=== PATIENT | male | born 1965 | race Caucasian/White ===

== ENCOUNTER 2017-06-18 05:28 | Day surgery (SDC) | payer MEDICAID ==
[~2017-06-18] VITALS: Ht 170.2 cm; Wt 95.3 kg
[2017-06-18] MEDS ORDERED: MORPHINE SULFATE/PF 1MG/ML 10ML AMP ONE (06:47)
[2017-06-18] MEDS ORDERED: BUPIVACAINE HCL/EPINEPHRINE/PF 0.5%/0.0005 10ML ONE (06:47)
[2017-06-18] MEDS ORDERED: EPINEPHRINE 1:1000 1 MG/ML AMP ONE (06:49)
[2017-06-18] MEDS ORDERED: ROCURONIUM BROMIDE 10MG/ML VIAL 5ML IV ONE (06:54)
[2017-06-18] MEDS ORDERED: PROPOFOL 200MG/20ML VIAL IV ONE ×2 (06:54→08:23)
[2017-06-18] MEDS ORDERED: MIDAZOLAM HCL 2 MG/2 ML VIAL ONE (06:54)
[2017-06-18] MEDS ORDERED: FENTANYL CITRATE/PF 50MCG/ML 2ML VIAL ONE (06:54)
[2017-06-18] MEDS ORDERED: GLYCOPYRROLATE 0.2 MG/ML 2ML VIAL ONE ×2 (06:54→09:11)
[2017-06-18] MEDS ORDERED: LACTATED RINGERS 1,000 ML IV SCH (06:55)
[2017-06-18] MEDS ORDERED: ONDANSETRON HCL 4MG/2ML VIAL ONE (07:03)
[2017-06-18] MEDS ORDERED: SODIUM CHLORIDE 0.9% 10ML VIAL ONE (07:03)
[2017-06-18] MEDS ORDERED: LIDOCAINE HCL/PF 1% 10 MG/ML 5ML VIAL ONE (07:03)
[2017-06-18] MEDS ORDERED: METOCLOPRAMIDE HCL 10MG/2ML VIAL ONE (07:03)
[2017-06-18] MEDS ORDERED: SUCCINYLCHOLINE CHLORIDE 200MG/10ML VIAL IV ONE (07:03)
[2017-06-18] MEDS ORDERED: SKIN ADHESIVE 0.7 GM EA TOP ONE (07:11)
[2017-06-18] MEDS ORDERED: BUPIVACAINE HCL/PF 0.5% (5MG/ML) 10ML ONE (07:26)
[2017-06-18] MEDS ORDERED: EPHEDRINE SULFATE 50MG/ML VIAL ONE (08:30)
[2017-06-18] MEDS ORDERED: NEOSTIGMINE METHYLSULFATE 1MG/ML 10 ML VIAL ONE (09:11)
[2017-06-18] MEDS ORDERED: HYDROCODONE/ACETAMINOPHEN 10/325MG TABLET PO PRN (09:45)
[2017-06-18] MEDS ORDERED: MEPERIDINE HCL/PF 25MG/ML CPJ IV PRN (10:15)
[2017-06-18] MEDS ORDERED: LABETALOL 5MG/ML SYR 20 MG/4 ML SYRINGE IV PRN (10:15)
[2017-06-18] MEDS ORDERED: HYDROMORPHONE HCL/PF 2MG/ML CPJ IV PRN (10:15)
[2017-06-18] MEDS ORDERED: ONDANSETRON HCL 4MG/2ML VIAL IV PRN (10:15)
[2017-06-18 10:55] VITALS: BP 125/80
== END 2017-06-18 17:00 | disposition home or self-care (01) ==
LOC: OR 05:28
PROVIDERS: ATTEND Orthopaedic Surgery
DX: S83.207A Unspecified tear of unspecified meniscus, current injury, left knee, initial encounter (principal); M94.262 Chondromalacia, left knee; M65.862 Other synovitis and tenosynovitis, left lower leg; X58.XXXA Exposure to other specified factors, initial encounter; Y93.9 Activity, unspecified; Y92.89 Other specified places as the place of occurrence of the external cause; Y99.9 Unspecified external cause status; G89.29 Other chronic pain; M17.0 Bilateral primary osteoarthritis of knee; M54.16 Radiculopathy, lumbar region; M65.9 Synovitis and tenosynovitis, unspecified
CPT/HCPCS: 29876; 29881; 88304; 88311; 97110; 97116; 97760; A4216; G0168; J0171; J0330; J2175; J2250; J2405; J2710; J2765; J3010; J3490; J7120; L1830; J2274; J2704